=== PATIENT | male | born 1985 | race Two or more races ===

== ENCOUNTER 2023-10-29 16:31 | Emergency (ER) | payer MEDICAID ==
[~2023-10-29] VITALS: Ht 165.1 cm; Wt 77.3 kg
[2023-10-29 16:43] VITALS: BP 114/77; PULSE 81; RESP 16; TEMP 97.9; O2SAT 96
[2023-10-29] MEDS ORDERED: INDO50CA96 PO (16:47)
== END 2023-10-29 16:54 | disposition home or self-care (01) ==
LOC: ER 16:34
DX: M10.9 Gout, unspecified (principal)
CPT/HCPCS: 99283

== ENCOUNTER 2024-12-01 15:40 | Emergency (ER) | payer MEDICAID ==
[~2024-12-01] VITALS: Ht 162.6 cm; Wt 81.8 kg
[~2024-12-01 15:40] MED LIST: INDO50CA96 PO
[2024-12-01 15:43] VITALS: BP 152/108; PULSE 74; TEMP 98.2; O2SAT 99
[2024-12-01] MEDS ORDERED: COLC0.6C3 PO (17:20)
[2024-12-01] MEDS ORDERED: PRED20TA PO (17:29)
[2024-12-01 17:54] VITALS: RESP 16
[2024-12-01] MEDS: ketorolac trometh 30MG/ML vial 30 MG/ML VIAL IM STA (17:54)
[2024-12-01] MEDS: colchicine 0.6mg tablet PO STA (17:54)
== END 2024-12-01 17:58 | disposition home or self-care (01) ==
LOC: ER 15:41
DX: M10.9 Gout, unspecified (principal); Z79.899 Other long term (current) drug therapy
CPT/HCPCS: 96372; 99283; J1885